=== PATIENT | female | born 1955 | race Caucasian/White ===

== ENCOUNTER 2019-01-16 09:58 | Emergency (ER) | payer SELFPAY ==
[2019-01-16] MEDS ORDERED: Aspirin 81 MG Tab.Chew PO ONE (10:02)
--- NOTE | 2019-01-16 10:05 | EDM.PDOC ---
ED HPI GENERAL MEDICAL PROBLEM - General Stated Complaint: PT SAYS HEART ATTACK Time Seen by Provider: 01/16/19 10:00 Source of Information: Reports: Patient History Limitations: Reports: No Limitations - History of Present Illness INITIAL COMMENTS - FREE TEXT/NARRATIVE: This 63 yo female patient reports to the ED with chest pain, numbness and tingling down her arms. The patient reports her symptoms started less than 30 minutes ago. The patient reports she has taken 2 doses of her nitroglycerin and is now starting to feel lightheaded as well as getting a headache. The patient reports she does have some cardiac history reporting she has some abnormal beats. The patient reports a history of hypertension and kidney disease. Onset: Today Duration: Minutes:, Constant Location: Reports: Chest, Upper Extremity, Left, Upper Extremity, Right Quality: Reports: Burning, Sharp Severity: Severe Improves with: Reports: None Worsens with: Reports: None Context: Reports: Other Associated Symptoms: Reports: Chest Pain Treatments FEED BLENDER: Reports: Nitroglycerin (x2) Chest Pain Score (Numeric/FACES): 4 - Related Data Allergies Allergy/AdvReac Type Severity Reaction Status Date / Time No Known Allergies Allergy Verified 01/16/19 10:06 Home Meds: Home Meds Losartan [Cozaar] 50 mg PO DAILY 01/16/19 [History] Metoprolol Succinate 50 mg PO DAILY 01/16/19 [History] Nitroglycerin 0.4 mg SL PRN 01/16/19 [History] amLODIPine [Norvasc] 5 mg PO DAILY 01/16/19 [History] ED ROS GENERAL - Review of Systems Review Of Systems: ROS reveals no pertinent complaints other than HPI. ED EXAM, GENERAL - Physical Exam Exam: See Below Exam Limited By: No Limitations General Appearance: Alert, WD/WN, Moderate Distress Eye Exam: Bilateral Eye: EOMI, Normal Inspection, PERRL Ears: Normal External Exam, Normal Canal, Hearing Grossly Normal, Normal TMs Nose: Normal Inspection, Normal Mucosa, No Blood Throat/Mouth: Normal Inspection, Normal Lips, Normal Teeth, Normal Gums, Normal Oropharynx, Normal Voice, No Airway Compromise Head: Atraumatic, Normocephalic Respiratory/Chest: No Respiratory Distress, Lungs Clear, Normal Breath Sounds, No Accessory Muscle Use, Chest Non-Tender Cardiovascular: Normal Peripheral Pulses, Regular Rate, Rhythm, No Edema, No Gallop, No JVD, No Murmur, No Rub GI/Abdominal: Normal Bowel Sounds, Soft, Non-Tender, No Organomegaly, No Distention, No Abnormal Bruit, No Mass (Female) Exam: Deferred Rectal (Female) Exam: Deferred Back Exam: Normal Inspection, Full Range of Motion, NT Extremities: Normal Inspection, Normal Range of Motion, Non-Tender, Normal Capillary Refill, No Pedal Edema Neurological: Alert, Oriented, CN II-XII Intact, Normal Cognition, Normal Gait, Normal Reflexes, No Motor/Sensory Deficits Psychiatric: Anxious Skin Exam: Warm, Dry, Intact, Normal Color, No Rash Lymphatic: No Adenopathy Course - Vital Signs Last Recorded V/S: Last Vital Signs Temp 36.5 C 01/16/19 10:09 Pulse 80 01/16/19 10:09 Resp 20 01/16/19 10:09 BP 146/78 H 01/16/19 10:09 Pulse Ox 97 01/16/19 10:09 - Orders/Labs/Meds Orders: Active Orders 24 hr Category Date Time Status EKG Documentation Completion [RC] URGENT Care 01/16/19 09:59 Ordered Labs: Laboratory Tests 01/16/19 01/16/19 Range/Units 09:59 10:15 WBC 8.4 (5.0-10.0) 10^3/uL RBC 4.93 (4.2-5.4) 10^6/uL Hgb 14.1 (12.0-16.0) g/dL Hct 43.3 (37.0-47.0) % MCV 87.8 (80-100) fL MCH 28.6 (27.0-34.0) pg MCHC 32.6 L (33.0-35.0) g/dL Plt Count 323 (150-450) 10^3/uL Neut % (Auto) 52.6 (42.2-75.2) % Lymph % (Auto) 36.8 (20.5-50.1) % [place] % (Auto) 7.5 (2-8) % Eos % (Auto) 2.4 (1.0-3.0) % Baso % (Auto) 0.7 (0.0-1.0) % Sodium 139 (135-145) mmol/L Potassium 3.3 L (3.6-5.0) mmol/L Chloride 104 (101-111) mmol/L Carbon Dioxide 25.0 (21.0-31.0) mmol/L Anion Gap 13.3 BUN 14 (7-18) mg/dL Creatinine 0.8 (0.6-1.3) mg/dL Est Cr Clr Drug Dosing 62.96 mL/min Estimated GFR (MDRD) > 60 BUN/Creatinine Ratio 17.50 Glucose 120 H (74-105) mg/dL Calcium 8.9 (8.4-10.2) mg/dl Total Bilirubin 0.4 (0.2-1.0) mg/dL AST 20 (10-42) IU/L ALT 17 (10-60) IU/L Alkaline Phosphatase 68 (42-121) IU/L Troponin I < 0.02 (0.00-0.02) ng/ml Total Protein 6.7 (6.7-8.2) g/dl Albumin 3.7 (3.2-5.5) g/dl Globulin 3.0 Albumin/Globulin Ratio 1.23 Meds: Medications Discontinued Medications Generic Name Dose Route Start Last Admin Trade Name Damianq PRN Reason Stop Dose Admin Aspirin 324 mg 01/16/19 10:02 01/16/19 10:09 Aspirin PO 01/16/19 10:03 324 mg ONETIME ONE Administration - Re-Assessments/Exams Free Text/Narrative Re-Assessment/Exam: 01/16/19 11:12 The patient was advised of the testing results. The patient was encouraged to stay for a repeat troponin level, but the patient did not want to wait that long. The patient reports she has has increased symptoms over the past week after taking her medications just prior to going to bed. The patient also report increased stress in her life due to getting from her of 31 years. The patient reports she has also changed her diet over the past couple of weeks which may have increased her acid reflux symptoms. Departure - Departure Time of Disposition: 11:09 Disposition: Home, Self-Care 01 Condition: Fair Clinical Impression: Nonspecific chest pain Acid reflux Qualifiers: Esophagitis presence: with esophagitis Qualified Code(s): K21.0 - Gastro- esophageal reflux disease with esophagitis Instructions: Nonspecific Chest Pain, [id number], Gastroesophageal Reflux Disease, Adult, [id number] Forms: ED Department Discharge Care Plan Goals: The patient was advised of the examination, lab, EKG and x-ray results during the visit. The patient was given an oral dose of Aspirin while in the ED. The patient was encouraged to continue to monitor for any additional symptoms or further concerns. If the patient has any additional symptoms or concerns, the patient should either return to the emergency department or visit her primary care facility. - My Orders Last 24 Hours: My Active Orders 01/16/19 09:59 EKG Documentation Completion [RC] URGENT - Assessment/Plan Last 24 Hours: My Active Orders 01/16/19 09:59 EKG Documentation Completion [RC] URGENT
[2019-01-16 10:43] LABS: ANION GAP 13.3; CHLORIDE,CL 104 mmol/L (101-111); SODIUM,NA 139 mmol/L (135-145)
--- NOTE | 2019-01-16 11:03 | CR ---
Clinical history: 63-year-old female emergency Department with chest pain. (No comparison films this institution) Interpretation: Upright AP portable chest film unremarkable. Normal cardiac silhouette without signs of alveolar edema or dependent pleural effusion (external school lunch monitor leads). No lung mass, hilar lymphadenopathy or focal lobar pneumonia. No atelectasis/collapse. No pneumothorax or free subdiaphragmatic air.
== END 2019-01-16 11:14 | disposition home or self-care (01) ==
LOC: DL.ED 09:58
DX: K21.0 Gastro-esophageal reflux disease with esophagitis (principal); Z79.899 Other long term (current) drug therapy
CPT/HCPCS: 36415; 71045; 80053; 84484; 85025; 93005; 99285; A9270; 99282

== ENCOUNTER 2020-03-29 07:26 | Emergency (ER) | payer SELFPAY ==
[2020-03-29] MEDS ORDERED: Ondansetron 4 MG/2 ML SDV IVPUSH ONE (07:48)
[2020-03-29] MEDS ORDERED: HYDROmorphone 1 MG/ML Syringe IVPUSH ONE ×2 (07:48→12:08)
[2020-03-29] MEDS ORDERED: Sodium Chloride 0.9% 1,000 ML IV ONE ×2 (07:48→10:57)
--- NOTE | 2020-03-29 07:51 | EDM.PDOC ---
"ED HPI GENERAL MEDICAL PROBLEM - General Stated Complaint: SEVERE KIDNEY PAIN Time Seen by Provider: 03/29/20 07:50 Source of Information: Reports: Patient, RN, RN Notes Reviewed History Limitations: Reports: No Limitations - History of Present Illness INITIAL COMMENTS - FREE TEXT/NARRATIVE: Patient presents to the ED via personal vehicle with complaints of left flank pain and dysuria. The patient reports this pain began last (03/24/2020). She describes the pain as constant and sharp, but that it waxes and wanes in severity. She states it originates in the left flank and radiates into her suprapubic region. She attest to nausea and vomiting with the pain. She denies fever, shaking chills, palpitations, diarrhea, melena, hematochezia, hematuria, or abdominal pain. She states she has not experiences pain like this before and has never had a kidney stone. She has not taken any medications for this problem. She denies alcohol and recreational drug use, but does attest to smoking a half a pack of cigarettes per day. Left Flank Pain Score (Numeric/FACES): 10 - Related Data Allergies Allergy/AdvReac Type Severity Reaction Status Date / Time bee venom protein (honey bee) Allergy Intermediate severe Verified 03/29/20 08:32 local swelling Home Meds: Home Meds Losartan [Cozaar] 50 mg PO DAILY 01/16/19 [History] Metoprolol Succinate 50 mg PO DAILY 01/16/19 [History] Nitroglycerin 0.4 mg SL ASDIRECTED PRN 01/16/19 [History] amLODIPine [Norvasc] 5 mg PO DAILY 01/16/19 [History] Ergocalciferol (Vitamin D2) [Vitamin D2] 1.25 mg PO Q7D 03/29/20 [History] oxyCODONE HCl/Acetaminophen [Percocet 5-325 mg Tablet] 1 tab PO ASDIRECTED PRN 03/29/20 [History] Past Medical History HEENT History: Reports: Impaired Vision Cardiovascular History: Reports: Arrhythmia, High Cholesterol, Hypertension, O ther (See Below) Other Cardiovascular History: hardening of the arteries Respiratory History: Reports: None Genitourinary History: Reports: Acute Renal Failure 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 Musculoskeletal History: Reports: Other (See Below) 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 KATIE Neurological History: Reports: None Psychiatric History: Reports: None Endocrine/Metabolic History: Reports: None Hematologic History: Reports: Other (See Below) Other Hematologic History: spleenectomy Immunologic History: Reports: None Oncologic (Cancer) History: Reports: None Dermatologic History: Reports: None - Infectious Disease History Infectious Disease History: Reports: Hepatitis B - Past Surgical History Head Surgeries/Procedures: Reports: None GI Surgical History: Reports: Appendectomy, Cholecystectomy Social & Family History - Family History Family Medical History: Noncontributory - Caffeine Use Caffeine Use: Reports: Tea ED ROS GENERAL - Review of Systems Review Of Systems: Comprehensive ROS is negative, except as noted in HPI. ED EXAM, RENAL/ - Physical Exam Exam: See Below Exam Limited By: No Limitations General Appearance: Alert, WD/WN, No Apparent Distress, Mild Distress Respiratory/Chest: No Respiratory Distress, Lungs Clear, Normal Breath Sounds, No Accessory Muscle Use, Chest Non-Tender Cardiovascular: Normal Peripheral Pulses, Regular Rate, Rhythm, No Edema, No Gallop, No JVD, No Murmur, No Rub GI/Abdominal: Normal Bowel Sounds, Soft, No Distention, No Mass, Pelvis Stable, Tender (To LLQ and suprapubic area) (Female) Exam: Deferred Rectal (Female) Exam: Deferred Back Exam: Full Range of Motion, CVA Tenderness (L). No: CVA Tenderness (R), Muscle Spasm, Paraspinal Tenderness, Vertebral Tenderness Extremities: Normal Inspection, Normal Range of Motion, Non-Tender, No Pedal Edema, Normal Capillary Refill Neurological: Alert, Oriented, CN II-XII Intact, Normal Cognition, Normal Gait, No Motor/Sensory Deficits Psychiatric: Anxious Skin Exam: Warm, Dry, Intact, Normal Color, No Rash. No: Ecchymosis, Erythema, Mottled, Pallor, Petechiae, Rash Course - Vital Signs Last Recorded V/S: Last Vital Signs Temp 98.1 F 03/29/20 07:28 Pulse 85 03/29/20 07:28 Resp 20 03/29/20 07:28 BP 121/93 H 03/29/20 07:28 Pulse Ox 99 03/29/20 07:28 - Orders/Labs/Meds Orders: Active Orders 24 hr Category Date Time Status CULTURE BLOOD [BC] Stat Lab 03/29/20 08:05 Received Sodium Chloride 0.9% [Normal Saline] 1,000 ml Med 03/29/20 10:57 Active IV ASDIRECTED Medication Orders Sodium Chloride (Normal Saline) 1,000 mls @ 125 mls/hr IV ASDIRECTED ONE Stop: 03/29/20 18:56 Labs: Laboratory Tests 03/29/20 03/29/20 03/29/20 Range/Units 07:32 08:05 08:05 WBC 19.7 H (5.0-10.0) 10^3/uL RBC 4.93 (4.2-5.4) 10^6/uL Hgb 14.3 D (12.0-16.0) g/dL Hct 43.1 (37.0-47.0) % MCV 87.4 (80-100) fL MCH 29.0 (27.0-34.0) pg MCHC 33.2 (33.0-35.0) g/dL Plt Count 355 (150-450) 10^3/uL Neut % (Auto) 77.4 H (42.2-75.2) % Lymph % (Auto) 15.2 L (20.5-50.1) % [place] % (Auto) 6.0 (2-8) % Eos % (Auto) 1.0 (1.0-3.0) % Baso % (Auto) 0.4 (0.0-1.0) % Sodium 141 (136-145) mmol/L Potassium 3.3 L (3.5-5.1) mmol/L Chloride 103 (98-107) mmol/L Carbon Dioxide 25 (21-32) mmol/L Anion Gap 16.3 H (7-13) mEq/L BUN 13 (7-18) mg/dL Creatinine 1.14 H (0.55-1.02) mg/dL Est Cr Clr Drug Dosing TNP Estimated GFR (MDRD) 48 BUN/Creatinine Ratio 11.4 (No establ ref range) Glucose 122 H (74-99) mg/dL Lactic Acid (0.4-2.0) mmol/L Calcium 9.3 (8.5-10.1) mg/dL Phosphorus 2.6 (2.6-4.7) mg/dL Magnesium 2.0 (1.8-2.4) mg/dL Total Bilirubin 0.3 (0.2-1.0) mg/dL AST 14 L (15-37) U/L ALT 24 (14-59) U/L Alkaline Phosphatase 92 (46-116) U/L Total Protein 7.2 (6.4-8.2) g/dL Albumin 3.8 (3.4-5.0) g/dL Globulin 3.4 Albumin/Globulin Ratio 1.1 Urine Color Yellow (YELLOW) Urine Appearance Slightly cloudy (CLEAR) Urine pH 8.0 (5.0-9.0) Ur Specific [place] >= 1.030 (1.005-1.030) Urine Protein Negative (NEGATIVE) Urine Glucose (UA) Negative (NEGATIVE) Urine Ketones Negative (NEGATIVE) Urine Occult Blood Small H (NEGATIVE) Urine Nitrite Negative (NEGATIVE) Urine Bilirubin Negative (NEGATIVE) Urine Urobilinogen 0.2 (0.2-1.0) mg/dL Ur Leukocyte Esterase Negative (NEGATIVE) Urine RBC 5-10 H /HPF Urine WBC 0-5 (0-5/HPF) /HPF Ur Epithelial Cells Few (NOT SEEN) /HPF Amorphous Sediment Moderate H (NOT SEEN) /HPF Urine Bacteria Few (0-FEW/HPF) /HPF Urine Mucus Few H (NOT SEEN) /LPF SARS CoV-2 RNA Rapid ROMINA (NEGATIVE) 03/29/20 03/29/20 Range/Units 08:05 11:22 WBC (5.0-10.0) 10^3/uL RBC (4.2-5.4) 10^6/uL Hgb (12.0-16.0) g/dL Hct (37.0-47.0) % MCV (80-100) fL MCH (27.0-34.0) pg MCHC (33.0-35.0) g/dL Plt Count (150-450) 10^3/uL Neut % (Auto) (42.2-75.2) % Lymph % (Auto) (20.5-50.1) % [place] % (Auto) (2-8) % Eos % (Auto) (1.0-3.0) % Baso % (Auto) (0.0-1.0) % Sodium (136-145) mmol/L Potassium (3.5-5.1) mmol/L Chloride (98-107) mmol/L Carbon Dioxide (21-32) mmol/L Anion Gap (7-13) mEq/L BUN (7-18) mg/dL Creatinine (0.55-1.02) mg/dL Est Cr Clr Drug Dosing Estimated GFR (MDRD) BUN/Creatinine Ratio (No establ ref range) Glucose (74-99) mg/dL Lactic Acid 2.6 H* (0.4-2.0) mmol/L Calcium (8.5-10.1) mg/dL Phosphorus (2.6-4.7) mg/dL Magnesium (1.8-2.4) mg/dL Total Bilirubin (0.2-1.0) mg/dL AST (15-37) U/L ALT (14-59) U/L Alkaline Phosphatase (46-116) U/L Total Protein (6.4-8.2) g/dL Albumin (3.4-5.0) g/dL Globulin Albumin/Globulin Ratio Urine Color (YELLOW) Urine Appearance (CLEAR) Urine pH (5.0-9.0) Ur Specific [place] (1.005-1.030) Urine Protein (NEGATIVE) Urine Glucose (UA) (NEGATIVE) Urine Ketones (NEGATIVE) Urine Occult Blood (NEGATIVE) Urine Nitrite (NEGATIVE) Urine Bilirubin (NEGATIVE) Urine Urobilinogen (0.2-1.0) mg/dL Ur Leukocyte Esterase (NEGATIVE) Urine RBC /HPF Urine WBC (0-5/HPF) /HPF Ur Epithelial Cells (NOT SEEN) /HPF Amorphous Sediment (NOT SEEN) /HPF Urine Bacteria (0-FEW/HPF) /HPF Urine Mucus (NOT SEEN) /LPF SARS CoV-2 RNA Rapid ROMINA Negative (NEGATIVE) Meds: Medications Generic Name Dose Route Start Last Admin Trade Name Freq PRN Reason Stop Dose Admin Sodium Chloride 1,000 mls @ 125 mls/hr 03/29/20 10:57 Normal Saline IV 03/29/20 18:56 ASDIRECTED ONE Discontinued Medications Generic Name Dose Route Start Last Admin Trade Name Freq PRN Reason Stop Dose Admin Hydromorphone HCl 2 mg 03/29/20 07:48 03/29/20 08:04 Dilaudid IVPUSH 03/29/20 07:49 2 mg ONETIME ONE Administration Hydromorphone HCl 2 mg 03/29/20 12:08 03/29/20 12:15 Dilaudid IVPUSH 03/29/20 12:09 2 mg ONETIME ONE Administration Sodium Chloride 1,000 mls @ 999 mls/hr 03/29/20 07:48 03/29/20 08:00 Normal Saline IV 03/29/20 08:48 999 mls/hr .BOLUS ONE Administration Meropenem/Sodium Chloride 1 gm 50 mls @ 100 mls/hr 03/29/20 09:22 03/29/20 13:26 / Premix IV 03/29/20 09:51 Infused ONETIME ONE Infusion Vancomycin HCl 1.25 gm/ Sodium 250 mls @ 167 mls/hr 03/29/20 09:24 03/29/20 13:25 Chloride IV 03/29/20 10:53 Infused ONETIME ONE Infusion Potassium Chloride 10 meq/ 100 mls @ 100 mls/hr 03/29/20 10:58 03/29/20 13:13 Premix IV 03/29/20 11:57 100 mls/hr ONETIME ONE Administration Ondansetron HCl 4 mg 03/29/20 07:48 03/29/20 08:01 Zofran IVPUSH 03/29/20 07:49 4 mg ONETIME ONE Administration - Radiology Interpretation Free Text/Narrative:: [facility] Final Radiology Report Call: [phone] assistance Online chat: [email or web address] Name: DARRION SAMANO Age: 64Years F Date: 03/29/2020 SSN: -- : [id number] Study: CT ABDOMEN PELVIS WO CONT Requesting Physician: Angela Hogan Images: [phone] Addl Studies: Provided Clinical History: Left flank pain; Dysuria Contrast: Without Contrast Medium: Contrast Amount: Contrast Method: Page 1 of 2 PROCEDURE INFORMATION: Exam: CT Abdomen And Pelvis Without Contrast Exam date and time: 03/29/2020 8:44 AM Age: 64 years old Clinical indication: Other: Left flank pain; Dysuria; Prior surgery; Surgery date: 6+ months; Surgery type: Gallbladder, appendix per patient TECHNIQUE: Imaging protocol: Computed tomography of the abdomen and pelvis without contrast. Radiation optimization: All CT scans at this facility use at least one of these dose optimization techniques: automated exposure control; mA and/or kV adjustment per patient size (includes targeted exams where dose is matched to clinical indication); or iterative reconstruction. COMPARISON: No relevant prior studies available. FINDINGS: Lungs: The lungs are mildly emphysematous. Liver: Normal. Gallbladder and bile ducts: Surgical clips are present in the right upper quadrant, consistent with previous cholecystectomy. Pancreas: Normal. Spleen: Normal. Adrenal glands: Normal. No mass. Kidneys and ureters: The left ureter is mildly and asymmetrically thickened with slight urothelial hyperdensity. Mild fatty stranding in the ureteropelvic junction region in association with mild enlargement of the left renal pelvis and calices. There are numerous phleboliths in the pelvis, more to the left and in close proximity to the distal left ureter. Normal right kidney. Stomach and bowel: Very mild scattered colonic diverticulosis. DARRION SAMANO | Final Radiology Report CONFIDENTIALITY STATEMENT This report is intended only for use by the referring physician, and only in accordance with law. If you received this in error, call [phone]. Page 2 of 2 Appendix: History includes appendectomy, however, there does appear to be a normal-appearing retrocecal appendix. Intraperitoneal space: No ascites, pneumoperitoneum or peritoneal lesion. Vasculature: Mild atherosclerosis of the abdominal aorta, pelvic arteries and mesenteric vessels. The aorta has normal caliber. Lymph nodes: No mesenteric, retroperitoneal or inguinal adenopathy. Urinary bladder: Unremarkable as visualized. Reproductive: Normal uterus and ovaries. Bones/joints: No fracture or suspicious osseous lesion. Soft tissues: No mass or hernia. IMPRESSION: 1. Left urinary collecting system abnormalities include mild hydroureteronephrosis with mild periureteral and peripelvic fatty stranding in addition to urothelial hyperdensity without definite urinary calculus. The findings of the suspicious for a left-sided ascending urinary tract infection. While a distal calculus is not entirely excluded given the number of phleboliths in the vicinity of the distal left ureter, the caliber of the left ureter is only very mildly increased, not consistent with the possible presence of a calculus of any significant diameter. 2. Incidental findings include mild pulmonary emphysema, mild atherosclerosis and mild colonic diverticulosis. 3. An appendix is present. Thank you for allowing us to participate in the care of your patient. Dictated and Authenticated by: Raul García MD 03/29/2020 9:05 AM Central Time ([place] & [place]) - Re-Assessments/Exams Free Text/Narrative Re-Assessment/Exam: 03/29/20 NS fluid bolus initiated. Dilaudid 2mg and Zofran 4mg ordered for pain. Labs and CT ordered; results pending. 03/29/20 Patient resting comfortably. Discussed preliminary findings in blood work, including elevated WBC and Lactic acid; discussed findings may warrant an admission to the hospital with possible transfer depending on CT results. Patient in agreement. 03/29/20 10:15 CT reveals hydroureteronephrosis; CBC leukocytosis of 19.7; Lactic Acid 2.6; Creatinine 1.14 with GFR of 48. Patient accepted to [facility] under the care of Dr. Kevin Suh in [place] and [facility] in [place] are on medical- surgical diversion. Patient verbalized want to travel to [place] via private vehicle; group underwriter discussed the significance of sepsis and the need for intravenous antibiotics, pain medication, and fluid resuscitation with the patient. Patient is in agreement to transfer to [place] via ground ambulance. Departure - Departure Time of Disposition: 13:56 Disposition: DC/Tfer to Acute Hospital 02 Condition: Good Clinical Impression: Hydroureteronephrosis Sepsis Qualifiers: Sepsis type: sepsis due to unspecified organism Sepsis acute organ dysfunction status: unspecified Qualified Code(s): A41.9 - Sepsis, unspecified organism - Discharge Information Forms: Interfacility Transfer [facility] Sepsis Event Note (ED) - Focused Exam Vital Signs: Vital Signs Temp Pulse Resp BP Pulse Ox 03/29/20 07:28 98.1 F 85 20 121/93 H 99 - My Orders Last 24 Hours: My Active Orders 03/29/20 08:05 CULTURE BLOOD [BC] Stat 03/29/20 10:57 Sodium Chloride 0.9% [Normal Saline] 1,000 ml IV ASDIRECTED - Assessment/Plan Last 24 Hours: My Active Orders 03/29/20 08:05 CULTURE BLOOD [BC] Stat 03/29/20 10:57 Sodium Chloride 0.9% [Normal Saline] 1,000 ml IV ASDIRECTED"
[2020-03-29 08:32] LABS: ANION GAP 16.3 mEq/L (7-13); CHLORIDE,CL 103 mmol/L (98-107); SODIUM,NA 141 mmol/L (136-145)
--- NOTE | 2020-03-29 09:06 | CT ---
PROCEDURE INFORMATION: Exam: CT Abdomen And Pelvis Without Contrast Exam date and time: 03/29/2020 8:44 AM Age: 64 years old Clinical indication: Other: Left flank pain; Dysuria; Prior surgery; Surgery date: 6+ months; Surgery type: Gallbladder, appendix per patient TECHNIQUE: Imaging protocol: Computed tomography of the abdomen and pelvis without contrast. Radiation optimization: All CT scans at this facility use at least one of these dose optimization techniques: automated exposure control; mA and/or kV adjustment per patient size (includes targeted exams where dose is matched to clinical indication); or iterative reconstruction. COMPARISON: No relevant prior studies available. FINDINGS: Lungs: The lungs are mildly emphysematous. Liver: Normal. Gallbladder and bile ducts: Surgical clips are present in the right upper quadrant, consistent with previous cholecystectomy. Pancreas: Normal. Spleen: Normal. Adrenal glands: Normal. No mass. Kidneys and ureters: The left ureter is mildly and asymmetrically thickened with slight urothelial hyperdensity. Mild fatty stranding in the ureteropelvic junction region in association with mild enlargement of the left renal pelvis and calices. There are numerous phleboliths in the pelvis, more to the left and in close proximity to the distal left ureter. Normal right kidney. Stomach and bowel: Very mild scattered colonic diverticulosis. Appendix: History includes appendectomy, however, there does appear to be a normal-appearing retrocecal appendix. Intraperitoneal space: No ascites, pneumoperitoneum or peritoneal lesion. Vasculature: Mild atherosclerosis of the abdominal aorta, pelvic arteries and mesenteric vessels. The aorta has normal caliber. Lymph nodes: No mesenteric, retroperitoneal or inguinal adenopathy. Urinary bladder: Unremarkable as visualized. Reproductive: Normal uterus and ovaries. Bones/joints: No fracture or suspicious osseous lesion. Soft tissues: No mass or hernia. IMPRESSION: 1. Left urinary collecting system abnormalities include mild hydroureteronephrosis with mild periureteral and peripelvic fatty stranding in addition to urothelial hyperdensity without definite urinary calculus. The findings of the suspicious for a left-sided ascending urinary tract infection. While a distal calculus is not entirely excluded given the number of phleboliths in the vicinity of the distal left ureter, the caliber of the left ureter is only very mildly increased, not consistent with the possible presence of a calculus of any significant diameter. 2. Incidental findings include mild pulmonary emphysema, mild atherosclerosis and mild colonic diverticulosis. 3. An appendix is present.
[2020-03-29] MEDS ORDERED: Meropenem Premix 1 GM in Premix Bag 1 BAG IV ONE (09:22)
[2020-03-29] MEDS ORDERED: Potassium Chloride 10 MEQ in Premix Bag 1 BAG IV ONE (10:58)
== END 2020-03-29 14:07 ==
LOC: DL.ED 07:26
DX: A41.9 Sepsis, unspecified organism (principal); N13.30 Unspecified hydronephrosis; I10 Essential (primary) hypertension; Z91.030 Bee allergy status; Z79.899 Other long term (current) drug therapy; Z20.828 Contact with and (suspected) exposure to other viral communicable diseases
CPT/HCPCS: 36415; 74176; 80053; 81001; 83605; 83735; 84100; 85025; 87040; 87635; 96365; 96366; 96367; 96375; 96376; 99285; J1170; J2185; J2405; J3370; J3480; J7030; J7050; U0002